=== PATIENT | female | born 1940 | race Caucasian/White ===

== ENCOUNTER 2019-09-07 04:47 | Inpatient (IN) | payer OTHER, MEDICARE ==
[~2019-09-07] VITALS: Ht 154.9 cm; Wt 124.6 kg
[~2019-09-07 04:47] MED LIST: CALCIUM 600 +1 EAC1 PO; CIPROFLOXACIN500 M1 PO; LEVSIN; LISINOPRIL-HCT1 EACH PO; MOBIC15 MG; NORCO 5-325 TA1 EACH PO; PERCOCET 5-3251 EACH PO; ZOFRAN 4 MG ORAL4 M1 DIS
[2019-09-07 04:48] VITALS: BP 139/61
[2019-09-07] MEDS ORDERED: GRALISE1 EACH PO (05:03)
[2019-09-07] MEDS ORDERED: LISINOPRIL PO (05:06)
[2019-09-07 05:36] LABS: CALCIUM 9.1 mg/dL (8.5-10.1); CREATININE 2.4 mg/dL (0.6-1.3)
[2019-09-07 05:39] LABS: APTT 23.5 Seconds (25.0-31.3); INR 1.1; PROTIME 11.6 Seconds (9.20-11.50)
[2019-09-07 05:47] LABS: TOTAL BILIRUBIN 1.4 mg/dL (<0.1-1.0); TOTAL PROTEIN 7.5 g/dL (6.4-8.2)
[2019-09-07 05:59] LABS: HEMATOCRIT 43.7 % (37.0-47.0); HEMOGLOBIN 14.9 gm/dL (12.0-15.0); MCH 32.2 pg (26.0-34.0); MCHC 34.2 g/dL (28.0-37.0); MCV 94.2 fL (80.0-100.0); MPV 7.4 fl. (7.2-11.1); NUCLEATED RBCS 0 /100WBC; PLATELET COUNT* 174 thou/uL (150-400); RBC 4.64 mil/uL (4.20-5.00); RDW-CV 15.8 % (10.5-14.5); WBC 18.6 thou/uL (4.0-11.0)
[2019-09-07 06:26] LABS: ABSOLUTE LYMPHOCYTES 1.7 thou/uL (0.8-5.3); ABSOLUTE MONOCYTES 1.1 thou/uL (0.0-1.2); ABSOLUTE NEUTROPHILS 15.8 thou/uL (1.6-8.1); ANISOCYTOSIS 1+; PLATELET ESTIMATE ADEQUATE; POIKILOCYTOSIS 1+
[2019-09-07 07:54] LABS: URINE BILIRUBIN NEGATIVE (Negative); URINE BLOOD 2+ (Negative); URINE CLARITY CLOUDY; URINE COLOR DARK YELLOW; URINE GLUCOSE-RANDOM NEGATIVE (Negative); URINE KETONES NEGATIVE (Negative); URINE PROTEIN 2+ (Negative); URINE UROBILINOGEN 0.2 E.U./dl (0.2-1.0)
[2019-09-07 07:56] LABS: URINE LEUKOCYTES-REFLEX 2+ (Negative); URINE NITRITE-REFLEX POSITIVE (Negative)
[2019-09-07 08:00] LABS: CASTS None Seen /LPF (None Seen); CRYSTALS None Seen /LPF (None Seen); MUCUS 4-6 Moderate strn/LPF (None Seen); SQUAMOUS 0-3 Few /LPF (0-3); URINE RBC 3-10 Few /HPF (0-2); URINE WBC-REFLEX >25 Many /HPF (0-5)
[2019-09-07 08:55] VITALS: BP 109/48
[2019-09-07 12:00] VITALS: BP 114/60
--- NOTE | 2019-09-07 15:50 | EKG ---
[place] [address] ELECTROCARDIOGRAM REPORT Name: NADIYA MINOR Room: [address] ADM IN M.R.#: [id number] Admission: 09/07/19 Attend Phys: Gurvinder Thornton, Discharge: Date of : 44 Date of Service: 09/07/19 0603 Report #: [id number] THIS REPORT FOR: //name// [facility] ED Test Date: 2019-09-07 Test Time: 06:03:23 Pat Name: NADIYA MINOR Department: Room: [facility] Gender: F Corsetier: EDITH : 1940 Requested By: Gordo Greco Order Number: [id number] MD: Emilio Diaz Measurements Intervals [place] Rate: 96 P: 19 TX: 219 QRS: -7 QRSD: 105 T: 241 QT: 360 QTc: 455 Interpretive Statements Sinus rhythm Prolonged TX interval Low voltage, precordial leads Nonspecific T abnormalities, diffuse leads Compared to ECG 07/20/2011 11:15:46 First degree AV block now present T-wave abnormality still present Electronically Signed On 09-07-2019 15:48:10 CDT by Emilio Diaz [email or web address] <ELECTRONICALLY SIGNED> By: Emilio Diaz MD, [facility] 09/07/19 1548 Emilio Diaz MD, [facility] /EPI
[2019-09-07 16:00] VITALS: BP 154/83
--- NOTE | 2019-09-07 18:09 | NUR ---
PATINET RESTING IN BED. VSS AND PATIENT IN NOAPPARENT SIGNS OF DISTRESS. REQUIRES MODERATE BED MOBILITY ASSSITANCE. ROOM AIR. UP STANDBY TO BEDSIDE COMMODE. COVID TEST PENDING. HOURLY ROUDNIGN COMPLETED FOR PATIENT SAFETY.
[2019-09-07 20:00] VITALS: BP 115/75
[2019-09-07 21:00] VITALS: BP 113/56
[2019-09-08] VITALS: BP 95/50
--- NOTE | 2019-09-08 06:24 | NUR ---
RECEIVED REPORT AND ASSUMED CARE OF PATIENT AT 1900. VSS. NO ACUTE CHANGES THROUGHOUT SHIFT. ALL ROUNDINGS COMPLETED, ALL NEEDS MET, FULL ASSESSMENT COMPLETED CHARTED.
[2019-09-08 07:52] LABS: ABSOLUTE BASOPHILS 0.1 thou/uL (0.0-0.2); ABSOLUTE LYMPHOCYTES 2.5 thou/uL (0.8-5.3); ABSOLUTE MONOCYTES 1.7 thou/uL (0.0-1.2); ABSOLUTE NEUTROPHILS 16.5 thou/uL (1.6-8.1); BASOPHILS 0.4 %; EOSINOPHILS 0.2 %; HEMOGLOBIN 14.5 gm/dL (12.0-15.0); LYMPHOCYTES 11.8 %; MCH 32.3 pg (26.0-34.0); MCHC 33.8 g/dL (28.0-37.0); MCV 95.8 fL (80.0-100.0); MONOCYTES 8.3 %; MPV 8.4 fl. (7.2-11.1); NUCLEATED RBCS 0 /100WBC; PLATELET COUNT* 128 thou/uL (150-400); POLYS 79.3 %; RBC 4.49 mil/uL (4.20-5.00); RDW-CV 16.4 % (10.5-14.5); WBC 20.8 thou/uL (4.0-11.0)
[2019-09-08 07:59] LABS: CALCIUM 8.6 mg/dL (8.5-10.1); CREATININE 2.1 mg/dL (0.6-1.3)
[2019-09-08 08:00] VITALS: BP 126/57
[2019-09-08 12:00] VITALS: BP 116/72
[2019-09-08 16:00] VITALS: BP 124/62
--- NOTE | 2019-09-08 16:30 | NUR ---
SPOKE WITH PT. SHE WAS ALERT AND ORIENTED. SHE WAS WAITING TO HAVE A TEST-CT OF ABD AND PELVIS. COVID 19 NEG. URINE CX IS PENDING. SHE SAID SHE LIVES ALONE. ONLY RELATIVE IS HER NIECE,EDELMIRA. SHE LIVES IN [place] AND IS ON HER WAY DOWN HERE TO SEE PT. EXPLAINED WE STILL ARE NOT ALLOWING VISITORS. SHE SAID EDELMIRA HAS ASKED HER TO MOVE TO [place] SO SHE CAN BE CLOSER TO EDELMIRA AND FAMILY. PT.SAID I DON'T HAVE THE GUTS. ENCOURAGED HER TO THINK OF THE FUTURE WHEN SHE MIGHT NOT BE ABLE TO TAKE CARE OF HERSELF AND WHAT SHE WOULD DO. SHE SAID SHE IS CURRENT WITH [facility] AND WOULD LIKE TO CONT.WITH THEM AT DISCHARGE. PT/OT ORDERED TO START TOMORROW IN HOSPITAL. PTS ONLY DME AT HOME IS A STAIR GLIDE AND LIFT CHAIR. SHE IS ABLE TO DO HER OWN LAUNDRY. HAS HER GROCERIES DELIVERED. CM WILL CONTINUE TO FOLLOW FOR DISCHARGE PLANNING.
--- NOTE | 2019-09-08 19:44 | NUR ---
PT. AOX4, VSS, PAIN UNDER CONTROL, SR-ST ON TELE. PT. UP TO BED SIDE COMMODE FOR VOIDING THIS AM DID NOT TOELRATE PURE KASHMIR AND WAS UNABLE TO VOID. PT. VOIDED AN AMPLE AMOUNT ONCE IN BED SIDE COMMODE. ASSISTX2 WITH GAIT BELT. IVF INFUSING CONTINUOUS WITHOUT COMPLICATIONS. PT. WHEELED IN BED TO CT. TOLERATED WITHOUT DIFFICULTY. PT. EDUCATED TO TURN Q2H AND OFFLOAD BACK. HOURLY ROUNDING PERFORMED. CALL LIGHT AND PERSONAL BELONGINGS PLACED WITHIN REACH. PT. IN BED AND WATCHING TV, IN NO APPARENT DISTRESS AT SHIFT CHANGE.
[2019-09-08 20:00] VITALS: BP 109/46
[2019-09-08 23:33] VITALS: BP 129/58
[2019-09-09 04:00] VITALS: BP 131/70
--- NOTE | 2019-09-09 05:01 | NUR ---
PATIENT PROGRESSING TOWARDS GOALS: PATIENT DENIES PAIN AND DISCOMFORT. PUREWICK CATHETER IN PLACE, WORKING WELL FOR PATIENT. REPOSITIONING COMPLETED Q2H. PATIENT WAS FEBRILE WITH 2000 AND 0000 VITAL SIGNS, BUT FEVER HAS RESOLVED WITHOUT INTERVENTION. CALL LIGHT WITHIN REACH
[2019-09-09 05:37] LABS: NUCLEATED RBCS 0 /100WBC; PLATELET COUNT* 146 thou/uL (150-400); RBC 3.91 mil/uL (4.20-5.00)
[2019-09-09 05:39] LABS: ABSOLUTE BASOPHILS 0.1 thou/uL (0.0-0.2); ABSOLUTE EOSINOPHILS 0.1 thou/uL (0.0-0.7); ABSOLUTE LYMPHOCYTES 1.9 thou/uL (0.8-5.3); ABSOLUTE NEUTROPHILS 6.5 thou/uL (1.6-8.1); BASOPHILS 0.7 %; EOSINOPHILS 1.4 %; HEMATOCRIT 37.5 % (37.0-47.0); HEMOGLOBIN 12.6 gm/dL (12.0-15.0); LYMPHOCYTES 19.9 %; MCH 32.2 pg (26.0-34.0); MCHC 33.6 g/dL (28.0-37.0); MPV 7.9 fl. (7.2-11.1); WBC 9.6 thou/uL (4.0-11.0)
[2019-09-09 06:01] LABS: ALBUMIN 2.3 g/dL (3.4-5.0); CREATININE 2.2 mg/dL (0.6-1.3); TOTAL BILIRUBIN 0.3 mg/dL (<0.1-1.0); TOTAL PROTEIN 6.5 g/dL (6.4-8.2)
[2019-09-09 06:02] LABS: POTASSIUM 3.5 mmol/L (3.5-5.1)
[2019-09-09 08:00] VITALS: BP 116/65
--- NOTE | 2019-09-09 12:16 | NUR ---
PT/OT to eval today, Pt may need skilled, Following for therapy recs. Pt current with [facility]. CM to discuss dispo with Pt post therapy evals.
[2019-09-09 12:18] VITALS: BP 116/57
[2019-09-09 17:22] VITALS: BP 134/62
--- NOTE | 2019-09-09 19:01 | NUR ---
PT. AOX4, VSS, SR ON MONITOR, DENIES PAIN. UP TO CHAIR WITH STANDBY ASSIST BY PT TODAY. HOURLY ROUNDING PERFORMED. IVF CONTINUOUS INFUSING WITHOUT COMPLICATIONS. CALL LIGHT AND PERSONAL BELONGINGS PLACED WITHIN REACH.PT. IN BED, WATCHING TV, IN NO APPARENT DISCOMFORT AT THE TIME OF SHIFT CHANGE.
[2019-09-09 20:10] VITALS: BP 149/67
[2019-09-10] VITALS (7 sets, daily range): BP systolic 135–145; BP diastolic 58–68
--- NOTE | 2019-09-10 05:15 | NUR ---
PATIENT PARTIALLY PROGRESSING TOWARDS GOALS: PATIENT DENIES PAIN AND DISCOMFORT. PATIENT REFUSING TO REPOSITION THROUGHOUT SHIFT DESPITE EDUCATION ON PREVENTION OF BED SORES. PATIENT STATES SHE IS "COMFORTABLE". PURE WICK CATHETER REMAINS IN PLACE. GOOD URINE OUTPUT. CALL LIGHT WITHIN REACH
[2019-09-10 05:33] LABS: ABSOLUTE EOSINOPHILS 0.2 thou/uL (0.0-0.7); ABSOLUTE LYMPHOCYTES 1.7 thou/uL (0.8-5.3); ABSOLUTE MONOCYTES 0.6 thou/uL (0.0-1.2); ABSOLUTE NEUTROPHILS 4.6 thou/uL (1.6-8.1); BASOPHILS 0.6 %; EOSINOPHILS 3.2 %; HEMATOCRIT 36.5 % (37.0-47.0); HEMOGLOBIN 12.3 gm/dL (12.0-15.0); LYMPHOCYTES 23.4 %; MCH 32.3 pg (26.0-34.0); MCHC 33.7 g/dL (28.0-37.0); MCV 95.8 fL (80.0-100.0); MPV 7.6 fl. (7.2-11.1); NUCLEATED RBCS 0 /100WBC; PLATELET COUNT* 151 thou/uL (150-400); POLYS 64.8 %; RBC 3.81 mil/uL (4.20-5.00); WBC 7.1 thou/uL (4.0-11.0)
[2019-09-10 05:46] LABS: CREATININE 1.8 mg/dL (0.6-1.3); POTASSIUM 4.2 mmol/L (3.5-5.1)
--- NOTE | 2019-09-10 10:29 | NUR ---
Nutrition: screen d/t BMI. Pt reported not too hungry here; feels meals come too often. BUN 25, prealbumin 2.3. IVF and other meds reviewed. No requests. Assessed at low-mild nutrition risk.
[2019-09-10] MEDS ORDERED: FLORANEX TABLE1 EACH PO (10:35)
[2019-09-10] MEDS ORDERED: CEFUROXIME250 MG PO (10:35)
--- NOTE | 2019-09-10 13:07 | NUR ---
Pt discharging to home today. Faxed resumption orders to [facility].
--- NOTE | 2019-09-10 17:40 | NUR ---
PT. AOX4, VSS, DENIES PAIN, SR ON MONITOR. HOURLY ROUNDING PERFORMED. CALL LIGHT AND PERSONAL BELONGINGS PLACED WITHIN REACH. DISCHARGE ORDERS RECEIVED. PIV DCED WITHOUT COMPLICATIONS. DISCHARGE SUMMARY AND CARENOTES PROVIDED. MEDICATIONS, ACTIVITY AND DIET ORDERS REVIEWED AND PT VERBALIZED UNDERSTANDING. PT. LEFT BY WC BY NURSING STAFF TO MAIN ENTRANCE AND PICKED BY BY FAMILY MEMBER BY CAR. PT. IN STABLE CONDITION AT TIME OF DISCHARGE.
== END 2019-09-10 14:35 | disposition home health service (06) | DRG 871 ==
LOC: M.ERS 04:47 → M.2W 06:31 → M.TBA-ER 06:31 → M.2W 08:51
PROVIDERS: Emergency Medicine Emergency Medical Services; ADMIT Internal Medicine; ATTEND Internal Medicine
DX: A41.51 Sepsis due to Escherichia coli [E. coli] (principal); N17.0 Acute kidney failure with tubular necrosis; G92 Toxic encephalopathy; N39.0 Urinary tract infection, site not specified; E87.1 Hypo-osmolality and hyponatremia; Z68.43 Body mass index [BMI] 50.0-59.9, adult; N18.4 Chronic kidney disease, stage 4 (severe); I12.9 Hypertensive chronic kidney disease with stage 1 through stage 4 chronic kidney disease, or unspecified chronic kidney disease; M19.90 Unspecified osteoarthritis, unspecified site; Z79.899 Other long term (current) drug therapy; E66.01 Morbid (severe) obesity due to excess calories; B96.20 Unspecified Escherichia coli [E. coli] as the cause of diseases classified elsewhere; N20.0 Calculus of kidney; Z20.828 Contact with and (suspected) exposure to other viral communicable diseases; Z90.49 Acquired absence of other specified parts of digestive tract